=== PATIENT | female | born 1995 | race Caucasian/White ===

== ENCOUNTER 2017-08-02 00:05 | Emergency (ER) | payer OTHER ==
[2017-08-02 00:23] VITALS: TEMP 98.3
--- NOTE | 2017-08-02 00:38 | ED PDOC ---
HPI: Wound Care - HPI Time Seen by Provider: 08/02/17 00:28 Chief Complaint (Nursing): Abnormal Skin Integrity Chief Complaint (Provider): hand laceration History Per: Patient Additional Complaint(s): 21-year-old right-hand dominant female presents to emergency department with laceration to right hand. Patient was at a bar when she was holding a glass and it broke in her hand. Patient applied pressure dressing and came immediately to ER. She denies foreign body sensation to wound. Tetanus is up-to-date. Past Medical History Reviewed: Historical Data, Nursing Documentation, Vital Signs Vital Signs: Last Vital Signs Temp 98.3 F 08/02/17 00:20 Pulse 105 H 08/02/17 00:20 Resp 16 08/02/17 00:20 BP 119/82 08/02/17 00:20 Pulse Ox 99 08/02/17 00:20 - Medical History PMH: No Chronic Diseases - Surgical History Surgical History: No Surg Hx - Family History Family History: States: No Known Family Hx - Living Arrangements Living Arrangements: With Family - Social History Current smoker - smoking cessation education provided: No Alcohol: Social Drugs: Denies - Immunization History Hx Tetanus Toxoid Vaccination: Yes - Home Medications Home Medications: Ambulatory Orders Medication Instructions Recorded Cephalexin [Keflex] 500 mg PO TID #21 capsule 08/02/17 - Allergies Allergies/Adverse Reactions: Allergies Allergy/AdvReac Type Severity Reaction Status Date / Time No Known Allergies Allergy Verified 08/02/17 00:20 Review of Systems ROS Statement: Except As Marked, All Systems Reviewed And Found Negative Musculoskeletal: Positive for: Other (right hand laceration) Physical Exam - Reviewed Nursing Documentation Reviewed: Yes Vital Signs Reviewed: Yes - Physical Exam Appears: Positive for: Well, Non-toxic, No Acute Distress Skin: Negative for: Rash Eye Exam: Positive for: Normal appearance, EOMI, PERRL Cardiovascular/Chest: Positive for: Regular Rate, Rhythm Respiratory: Positive for: Normal Breath Sounds Extremity: Positive for: Other (1 cm flap laceration to right palm, mild active bleeding, additional 4 cm laceration to right palm with active bleeding and exposure of tendon, full range of motion of all digits, normal distal sensation , normal sensation surrounding the wound) Neurologic/Psych: Positive for: Alert, Oriented - ECG O2 Sat by Pulse Oximetry: 99 Pulse Ox Interpretation: Normal - Other Rad Right hand x-ray X-Ray: Interpreted by Me, Viewed By Me X-Ray Interpretation: no fx, no dis Medical Decision Making Medical Decision Makin21 year old with right hand laceration Plan: 1 gram IV ancef X-ray right hand Lac repair Procedure Note: Under sterile conditions lacerations to right palm were anesthetized with a total of 10 mL of lidocaine 2% without epinephrine. Good anesthesia was achieved. Both lacerations were irrigated copiously with normal saline and Betadine, lacerations were explored for foreign bodies, no foreign bodies noted. The smaller 1 cm laceration was repaired using 3 simple interrupted 5-0 nylon sutures. The larger 4 cm laceration demonstrated 3 mm tendon sheath avulsion protruding through the wound which was excised. Wound was then further irrigated. Subcutaneous layer was repaired with 5 simple interrupted 5-0 Vicryl sutures followed by 11 simple interrupted 5-0 nylon sutures to repair skin layer. Procedure was tolerated well by patient with no acute complications. Sterile dressing was applied after sutures completed. Patient was given detailed wound care instructions. She was advised to take NSAIDs for pain relief and prescription for Keflex was given. Disposition - Clinical Impression Clinical Impression: Hand laceration - Patient ED Disposition Is Patient to be Admitted: No Counseled Patient/Family Regarding: Studies Performed, Diagnosis, Need For Followup, Rx Given - Disposition Referrals: [facility] [Outside] Disposition: Routine/Home Disposition Time: 02:22 Condition: STABLE Additional Instructions: Keep wound clean and dry. Wash wound daily with soap and water and apply neosporin once per day. Take over the counter advil or tylenol for pain Take rx antibiotics as directed Wound check 2 days Suture removal 10-14 days. Prescriptions: Cephalexin [Keflex] 500 mg PO TID #21 capsule Instructions: Laceration (ED), Care For Your Stitches (ED) Forms: [employer] ([place]ish)
[2017-08-02] MEDS ORDERED: Lidocaine 2% w Epi 1:100,000 Inj IJ ONE (01:23)
[2017-08-02] MEDS ORDERED: Povidone Iodine Topical 10% Sol ONE (01:25)
[2017-08-02] MEDS ORDERED: Lidocaine 2% w Epi 1:100,000 Inj IJ STA (02:35)
[2017-08-02 05:28] VITALS: BP 116/72; PULSE 78; RESP 18; O2SAT 100
--- NOTE | 2017-08-02 12:34 | RAD ---
PROCEDURE: Right Hand Radiographs. HISTORY: trauma COMPARISON: None. FINDINGS: BONES: Normal. No fracture. JOINTS: Normal. No osteoarthritic changes. SOFT TISSUES: Normal. OTHER FINDINGS: None. IMPRESSION: Normal right hand radiographs.
== END 2017-08-02 03:40 | disposition home or self-care (01) ==
LOC: H.ER 00:05
DX: S61.411A Laceration without foreign body of right hand, initial encounter (principal); W25.XXXA Contact with sharp glass, initial encounter; Y92.89 Other specified places as the place of occurrence of the external cause
CPT/HCPCS: 12001; 26356; 73130; 96365; 99283; J0690